=== PATIENT | female | born 1970 | race Two or more races ===

== ENCOUNTER 2019-05-26 10:15 | Emergency (ER) | payer OTHER ==
[~2019-05-26] VITALS: Ht 154.9 cm; Wt 99.8 kg
[2019-05-26 10:24] VITALS: BP 123/75
[2019-05-26] MEDS ORDERED: PROMETHAZINE HCL 25 MG/ML 1ML IM ONE (12:00)
[2019-05-26] MEDS ORDERED: MEPERIDINE HCL (50 MG/ML) 1 ML VIAL IM ONE (12:00)
== END 2019-05-26 12:37 | disposition home or self-care (01) ==
LOC: ER 10:15
DX: M54.9 Dorsalgia, unspecified (principal); M62.838 Other muscle spasm; I10 Essential (primary) hypertension
CPT/HCPCS: 96372; 99283; J2175; J2550

== ENCOUNTER → 2020-02-15 | Emergency (ER) | payer OTHER ==
[~2020-02-15] VITALS: Ht 154.9 cm; Wt 106.1 kg
[~2020-02-15] MED LIST: HYDROmorphone HCL 2 MG/ML VL IV ONE; MIDAZOLAM HCL 5 MG/ML-1ML VIAL IV ONE; MIDAZOLAM HCL 5 MG/ML-1ML VIAL ONE; ONDANSETRON HCL 4 MG/2 ML VIAL IV ONE; fentaNYL CITRATE 100 MCG/2 ML VL IV ONE
[2020-02-16 01:21] VITALS: BP 148/66
== END | disposition home or self-care (01) ==
LOC: EDUNIT# 20:07 → EDBD 20:17 → ER 20:17
DX: S92.191A Other fracture of right talus, initial encounter for closed fracture (principal); W01.0XXA Fall on same level from slipping, tripping and stumbling without subsequent striking against object, initial encounter; Y93.89 Activity, other specified; Y92.89 Other specified places as the place of occurrence of the external cause; Y99.8 Other external cause status
CPT/HCPCS: 27768; 73600; 73610; 96374; 96375; 99152; 99153; 99285; J1170; J2250; J2405; J3010; J7030

== ENCOUNTER → 2020-02-22 | Emergency (ER) | payer OTHER ==
[~2020-02-22] VITALS: Ht 154.9 cm; Wt 106.1 kg
[~2020-02-22] MED LIST changes: +LABETALOL HCL 5 MG/ML 4ML SYRINGE IV ONE; +METOCLOPRAMIDE HCL 5MG/ml INJ 2ml VIAL IV ONE; -MIDAZOLAM HCL 5 MG/ML-1ML VIAL IV ONE; -MIDAZOLAM HCL 5 MG/ML-1ML VIAL ONE; -ONDANSETRON HCL 4 MG/2 ML VIAL IV ONE; +PROMETHAZINE HCL 25 MG/ML 1ML IV ONE; -fentaNYL CITRATE 100 MCG/2 ML VL IV ONE
[2020-02-22 16:13] LABS: Basophils # (auto) 0.1 10 ^3/uL (0-0.2); Eosinophils # (auto) 0 10 ^3/uL (0-0.8); Mean Corpuscular Volume 82.7 fL (80.0-100.0); Neutrophils % (auto) 72.5 % (37.0-80.0)
[2020-02-22 16:15] LABS: Basophils % (auto) 0.6 % (0.0-2.0); Eosinophils % (auto) 0.4 % (0.0-7.0); Hematocrit 40.1 % (36.0-46.0); Hemoglobin 13.3 g/dL (12.2-16.2); Lymphocytes # (auto) 2.5 10 ^3/uL (0.4-5.4); Lymphocytes % (auto) 19.7 % (10.0-50.0); Mean Corpuscular Hemoglobin 27.5 pg (28.0-32.0); Mean Corpuscular Hgb Conc. 33.2 g/dL (32.0-36.0); Monocytes # (auto) 0.9 10 ^3/uL (0-1.3); Monocytes % (auto) 6.8 % (0.0-12.0); Neutrophils # (auto) 9.2 10 ^3/uL (1.6-8.6); Platelet Count (auto) 468 10^3/uL (140-450); Red Blood Cells 4.85 10^6/uL (4.0-5.20); Red Cell Distribution Width 15.1 % (11.8-14.3); Urine Bacteria NONE SEEN /hpf (None Seen); Urine Blood Negative /uL (Negative); Urine Specific Gravity 1.032 (1.001-1.035); Urine WBC 1 /hpf (0 - 5); White Blood Cell 12.7 10^3/uL (4.4-10.8)
[2020-02-22 16:31] LABS: Calcium 8.7 mg/dL (8.5-10.1); Potassium 3.8 mmol/L (3.5-5.1)
[2020-02-22 16:35] LABS: BUN/Creatinine Ratio 13.2; Bilirubin, Total 0.6 mg/dL (0.2-1.0); Total Protein 8.4 g/dL (6.4-8.2)
[2020-02-22 19:40] VITALS: BP 134/46
== END | disposition home or self-care (01) ==
LOC: ER 14:58
DX: S82.891A Other fracture of right lower leg, initial encounter for closed fracture (principal); I10 Essential (primary) hypertension; X58.XXXA Exposure to other specified factors, initial encounter; Y93.89 Activity, other specified; Y92.89 Other specified places as the place of occurrence of the external cause; Y99.8 Other external cause status
CPT/HCPCS: 29515; 36415; 73610; 80053; 81001; 85025; 93971; 96374; 96375; 96376; 99285; J1170; J2550; J2765

== ENCOUNTER 2021-05-18 15:19 | Emergency (ER) | payer OTHER ==
[~2021-05-18] VITALS: Ht 154.9 cm; Wt 106.1 kg
[2021-05-18 17:08] LABS: Urine Bacteria NONE SEEN /hpf (None Seen); Urine Blood Negative /uL (Negative); Urine Mucus FEW (None Seen); Urine Specific Gravity 1.024 (1.001-1.035); Urine WBC 1 /hpf (0 - 5)
[2021-05-18] MEDS ORDERED: methylPREDNISolone SOD SUCC 125 MG/2 ML VL IM ONE (19:15)
[2021-05-18 21:43] VITALS: BP 165/98
== END 2021-05-19 00:01 | disposition home or self-care (01) ==
LOC: ER 15:19
DX: T78.40XA Allergy, unspecified, initial encounter (principal); I10 Essential (primary) hypertension; R07.89 Other chest pain; E66.9 Obesity, unspecified; E78.5 Hyperlipidemia, unspecified; Z68.41 Body mass index [BMI] 40.0-44.9, adult; Z88.8 Allergy status to other drugs, medicaments and biological substances; Z20.822 Contact with and (suspected) exposure to COVID-19; X58.XXXA Exposure to other specified factors, initial encounter
CPT/HCPCS: 36415; 71045; 81001; 87426; 96372; 99284; J2930

== ENCOUNTER 2022-11-02 09:02 | Emergency (ER) | payer OTHER ==
[~2022-11-02] VITALS: Ht 157.5 cm; Wt 101.5 kg
[~2022-11-02 09:02] MED LIST changes: +GABA-339 PO; +HYDR-4798 PO; +HYDR25TA4 PO; -HYDROmorphone HCL 2 MG/ML VL IV ONE; -LABETALOL HCL 5 MG/ML 4ML SYRINGE IV ONE; +LOSA-69 PO; +MET25T PO; -METOCLOPRAMIDE HCL 5MG/ml INJ 2ml VIAL IV ONE; -PROMETHAZINE HCL 25 MG/ML 1ML IV ONE; +SPIR25TA8 PO; +TIZA2CAP PO
[2022-11-02] MEDS ORDERED: IOHEXOL 300 MG/ML 100ML BOTTLE IJ ONE (12:09)
[2022-11-02] MEDS ORDERED: IPRATROPIUM BROM 0.5 MG/2.5ML INH SOL NEB ONE (12:15)
[2022-11-02] MEDS ORDERED: DexAMETHasone SOD PHOS 10MG/1ML VIAL INJ IV ONE (12:15)
[2022-11-02] MEDS ORDERED: diphenhdrAMINE HCL 50 MG/1 ML VL IV ONE (12:15)
[2022-11-02] MEDS ORDERED: ALBUTEROL SULF 2.5 MG/0.5ML(0.5%) NEB SOLN NEB ONE (12:15)
[2022-11-02] MEDS ORDERED: FAMOTIDINE (10MG/ML) 2ML VL IV ONE (12:15)
[2022-11-02 12:42] LABS: Basophils % (auto) 0.5 % (0.0-2.0); Eosinophils # (auto) 0.2 10 ^3/uL (0-0.8); Hematocrit 43.3 % (36.0-46.0); Lymphocytes # (auto) 2.7 10 ^3/uL (0.4-5.4); Monocytes # (auto) 0.8 10 ^3/uL (0-1.3); Neutrophils # (auto) 6.9 10 ^3/uL (1.6-8.6); White Blood Cell 10.7 10^3/uL (4.4-10.8)
[2022-11-02 12:43] LABS: Basophils # (auto) 0 10 ^3/uL (0-0.2); Eosinophils % (auto) 2.2 % (0.0-7.0); Hemoglobin 14.5 g/dL (12.2-16.2); Lymphocytes % (auto) 25.4 % (10.0-50.0); Mean Corpuscular Hemoglobin 28.2 pg (28.0-32.0); Mean Corpuscular Hgb Conc. 33.6 g/dL (32.0-36.0); Mean Corpuscular Volume 84.1 fL (80.0-100.0); Monocytes % (auto) 7.6 % (0.0-12.0); Neutrophils % (auto) 64.3 % (37.0-80.0); Nucleated Red Blood Cells % 0.1 %; Red Blood Cells 5.14 10^6/uL (4.0-5.20); Red Cell Distribution Width 14.3 % (11.8-14.3)
[2022-11-02 13:04] LABS: Potassium 3.7 mmol/L (3.5-5.1)
[2022-11-02 13:11] LABS: Albumin 4.2 g/dL (3.4-5.0); BUN/Creatinine Ratio 20.9 (10.0-20.0); Bilirubin, Total 0.5 mg/dL (0.2-1.0)
[2022-11-02 16:37] VITALS: BP 136/80
== END 2022-11-02 16:37 | disposition home or self-care (01) ==
LOC: ER 09:02
DX: R07.89 Other chest pain (principal); T50.905A Adverse effect of unspecified drugs, medicaments and biological substances, initial encounter; E78.5 Hyperlipidemia, unspecified; I10 Essential (primary) hypertension; Z88.8 Allergy status to other drugs, medicaments and biological substances; Z79.899 Other long term (current) drug therapy; Z98.890 Other specified postprocedural states; X58.XXXA Exposure to other specified factors, initial encounter; Y92.89 Other specified places as the place of occurrence of the external cause
CPT/HCPCS: 36415; 70491; 71046; 80053; 83880; 84484; 85025; 85379; 93005; 94640; 96374; 96375; 99285; J1100; J1200; J3490; J7644; Q9967

== ENCOUNTER 2023-11-08 15:50 | Emergency (ER) | payer OTHER ==
[~2023-11-08] VITALS: Ht 152.4 cm; Wt 101.9 kg
[~2023-11-08 15:50] MED LIST changes: +LOSA-534 PO; -LOSA-69 PO
[2023-11-08] MEDS: KETOROLAC TROMETH 60MG/2ML VIAL IM ONE (17:08)
[2023-11-08] MEDS: DexAMETHasone SOD PHOS 10MG/1ML VIAL INJ IM ONE (17:08)
[2023-11-08] MEDS: cefTRIAXone SOD 1,000 MG VL IM ONE (17:09)
[2023-11-08 17:17] VITALS: BP 134/83; PULSE 97; RESP 18; TEMP 97.1; O2SAT 98
[2023-11-08] MEDS ORDERED: ACET500T58 PO (17:20)
[2023-11-08] MEDS ORDERED: LIDO2SOL26 MT (17:20)
[2023-11-08] MEDS ORDERED: PENI500T2 PO (17:20)
[2023-11-08] MEDS ORDERED: AMOX500T3 PO (17:29)
== END 2023-11-08 17:25 | disposition home or self-care (01) ==
LOC: ER 15:50
DX: J03.90 Acute tonsillitis, unspecified (principal); M79.10 Myalgia, unspecified site; R11.2 Nausea with vomiting, unspecified; R19.7 Diarrhea, unspecified; I10 Essential (primary) hypertension; E78.5 Hyperlipidemia, unspecified; Z79.2 Long term (current) use of antibiotics; Z79.899 Other long term (current) drug therapy; Z88.8 Allergy status to other drugs, medicaments and biological substances
CPT/HCPCS: 96372; 99284; J0696; J1100; J1885

== ENCOUNTER 2023-12-07 08:05 | Inpatient (IN) | payer OTHER ==
[~2023-12-07] VITALS: Ht 154.9 cm; Wt 100.0 kg
[~2023-12-07 08:05] MED LIST changes: +ACET500T58 PO; +AMOX500T3 PO; +LIDO2SOL26 MT
[2023-12-07 08:45] LABS: Urine Bacteria None Seen /hpf (None Seen)
[2023-12-07 09:15] LABS: Urine Blood Negative /uL (Negative); Urine Clarity Turbid (Clear); Urine Color Yellow (Yellow); Urine Hyaline Cast FEW /lpf (0 - 2); Urine Mucus FEW (None Seen); Urine Protein, UAD TRACE (Negative); Urine Specific Gravity 1.032 (1.001-1.035); Urine Urobilinogen 2 mg/dL (Negative); Urine WBC 4 /hpf (0 - 5); Urine pH 5.5 (5.0-9.0)
[2023-12-07 09:27] LABS: Eosinophils # (auto) 0.2 10 ^3/uL (0-0.8); Hemoglobin 14.5 g/dL (12.2-16.2); Nucleated Red Blood Cells % 0.1 %
[2023-12-07 09:29] LABS: Basophils # (auto) 0.1 10 ^3/uL (0-0.2); Basophils % (auto) 0.6 % (0.0-2.0); Eosinophils % (auto) 1.9 % (0.0-7.0); Lymphocytes % (auto) 19.1 % (10.0-50.0); Mean Corpuscular Hemoglobin 27.1 pg (28.0-32.0); Mean Corpuscular Hgb Conc. 32.8 g/dL (32.0-36.0); Mean Corpuscular Volume 82.6 fL (80.0-100.0); Monocytes # (auto) 0.7 10 ^3/uL (0-1.3); Monocytes % (auto) 6.5 % (0.0-12.0); Neutrophils # (auto) 7.6 10 ^3/uL (1.6-8.6); Neutrophils % (auto) 71.9 % (37.0-80.0); Red Blood Cells 5.33 10^6/uL (4.0-5.20); Red Cell Distribution Width 14.1 % (11.8-14.3); White Blood Cell 10.6 10^3/uL (4.4-10.8)
[2023-12-07] MEDS: ONDANSETRON ODT 4 MG TAB PO ONE (09:32)
[2023-12-07 09:43] LABS: Alanine Aminotransferase 26 U/L (7-40); Albumin 4.9 g/dL (3.2-4.8); Alkaline Phosphatase 90 U/L (46-116); Anion Gap 7 (5-15); Aspartate Aminotransferase 15 U/L (13-40); BUN/Creatinine Ratio 13.7 (10.0-20.0); Blood Urea Nitrogen 13 mg/dL (9-23); Calcium 10.3 mg/dL (8.5-10.1); Carbon Dioxide 30 mmol/L (20-30); Chloride 102 mmol/L (98-107); Glucose 176 mg/dL (74-106); Potassium 3.3 mmol/L (3.5-5.1); Sodium 139 mmol/L (136-145)
[2023-12-07 09:44] LABS: Bilirubin, Total 0.4 mg/dL (0.2-1.0); Total Protein 7.9 g/dL (5.7-8.2)
[2023-12-07 10:45] VITALS: PULSE 13; RESP 13; O2SAT 95
[2023-12-07 11:11] LABS: Lipase 51 U/L (12-53)
[2023-12-07] MEDS ORDERED: DOCUSATE SOD 100 MG CAP PO PRN (11:45)
[2023-12-07] MEDS ORDERED: ACETAMINOPHEN 325 MG TAB PO PRN (11:45)
[2023-12-07] MEDS ORDERED: ONDANSETRON HCL 4 MG/2 ML VIAL IV PRN (11:45)
[2023-12-07] MEDS ORDERED: CLON0.1T PO (11:55)
[2023-12-07] MEDS ORDERED: CARV3.1240 PO (11:55)
[2023-12-07] MEDS ORDERED: HYDR25TA87 PO (11:55)
[2023-12-07] MEDS ORDERED: TIZA-142 PO (11:55)
[2023-12-07] MEDS ORDERED: GABA800T97 PO (11:55)
[2023-12-07] MEDS ORDERED: TIZANIDINE HYDROCHLORIDE 4 MG PO PRN (12:00)
[2023-12-07] MEDS: POTASSIUM CHL 20MEQ/100ML 100 ML IV SCH (12:06)
[2023-12-07] MEDS: SODIUM CHLORIDE 0.9% 1,000 ML IV ONE (12:17)
[2023-12-07] MEDS: GABAPENTIN 400 MG CAP PO SCH (14:09)
[2023-12-07] MEDS: SODIUM CHLORIDE 0.9% 1,000 ML IV SCH (16:17)
[2023-12-07 18:09] VITALS: RESP 18
[2023-12-07] MEDS ORDERED: FENO145T27 PO (18:31)
[2023-12-07 20:00] VITALS: PULSE 70; RESP 20; O2SAT 96
[2023-12-07 21:00] VITALS: BP 130/76; PULSE 70; RESP 20; TEMP 98.3; O2SAT 96
[2023-12-07] MEDS: CARVEDILOL 3.125 MG TAB PO SCH (21:58)
[2023-12-07] MEDS: HYDROcodone-ACET 5/325MG TAB PO PRN (22:05)
[2023-12-08] VITALS (9 sets, daily range): BP systolic 93–159; BP diastolic 41–82; PULSE 61–80; RESP 16–20; TEMP 97.7–98.5; O2SAT 91–98
[2023-12-08 06:53] LABS: Basophils # (auto) 0 10 ^3/uL (0-0.2); Basophils % (auto) 0.4 % (0.0-2.0); Eosinophils # (auto) 0.3 10 ^3/uL (0-0.8); Eosinophils % (auto) 3.6 % (0.0-7.0); Hematocrit 38.6 % (36.0-46.0); Hemoglobin 12.9 g/dL (12.2-16.2); Lymphocytes # (auto) 2.6 10 ^3/uL (0.4-5.4); Lymphocytes % (auto) 36.2 % (10.0-50.0); Mean Corpuscular Hemoglobin 27.4 pg (28.0-32.0); Mean Corpuscular Hgb Conc. 33.3 g/dL (32.0-36.0); Mean Corpuscular Volume 82.2 fL (80.0-100.0); Monocytes # (auto) 0.6 10 ^3/uL (0-1.3); Neutrophils # (auto) 3.6 10 ^3/uL (1.6-8.6); Neutrophils % (auto) 50.8 % (37.0-80.0); Red Cell Distribution Width 13.9 % (11.8-14.3); White Blood Cell 7.1 10^3/uL (4.4-10.8)
[2023-12-08 09:27] LABS: Alanine Aminotransferase 21 U/L (7-40); Albumin 4.1 g/dL (3.2-4.8); Alkaline Phosphatase 67 U/L (46-116); Anion Gap 5 (5-15); Aspartate Aminotransferase 17 U/L (13-40); BUN/Creatinine Ratio 12.2 (10.0-20.0); Bilirubin, Total 0.4 mg/dL (0.2-1.0); Blood Urea Nitrogen 10 mg/dL (9-23); Calcium 9.3 mg/dL (8.5-10.1); Carbon Dioxide 29 mmol/L (20-30); Chloride 106 mmol/L (98-107); Glucose 164 mg/dL (74-106); Magnesium 1.6 mg/dL (1.6-2.6); Sodium 140 mmol/L (136-145); Total Protein 6.7 g/dL (5.7-8.2)
[2023-12-08 09:50] LABS: Triglycerides 188 mg/dL (< 150)
[2023-12-08 09:51] LABS: LDL Cholesterol 110 mg/dL (< 100)
[2023-12-08 09:52] LABS: Cholesterol 150 mg/dL (< 200)
[2023-12-08 10:22] LABS: HDL Cholesterol 26 mg/dL (40-59)
[2023-12-08] MEDS: MAGNESIUM SULFATE 1GM/100ML 100 ML IV SCH (11:27)
[2023-12-08 13:57] LABS: Amphetamine Screen, Urine Neg (NEGATIVE); Barbiturate Scree,Urine Neg (NEGATIVE); Benzodiazephine Screen, Urine Neg (NEGATIVE); Cannabinoid Screen, Urine Neg (NEGATIVE); Cocaine Screen, Urine Neg (NEGATIVE); Opiate Scree,Urine Neg (NEGATIVE); Phencyclidine Screen, Urine Neg (NEGATIVE)
[2023-12-08] MEDS: hydrALAZINE HCL 25 MG TAB PO PRN (14:13)
[2023-12-09 01:00] VITALS: BP 101/64; PULSE 73; RESP 17; TEMP 98.3; O2SAT 98
[2023-12-09 05:00] VITALS: BP 104/41; PULSE 71; RESP 19; TEMP 98; O2SAT 97
[2023-12-09 07:00] LABS: Basophils # (auto) 0 10 ^3/uL (0-0.2); Basophils % (auto) 0.6 % (0.0-2.0); Eosinophils # (auto) 0.2 10 ^3/uL (0-0.8); Eosinophils % (auto) 3.5 % (0.0-7.0); Hemoglobin 12.9 g/dL (12.2-16.2); Lymphocytes # (auto) 1.9 10 ^3/uL (0.4-5.4); Lymphocytes % (auto) 30.4 % (10.0-50.0); Mean Corpuscular Hgb Conc. 33.2 g/dL (32.0-36.0); Mean Corpuscular Volume 84.5 fL (80.0-100.0); Monocytes # (auto) 0.5 10 ^3/uL (0-1.3); Monocytes % (auto) 8.6 % (0.0-12.0); Neutrophils # (auto) 3.6 10 ^3/uL (1.6-8.6); Neutrophils % (auto) 56.9 % (37.0-80.0); Nucleated Red Blood Cells % 0.1 %; Red Blood Cells 4.62 10^6/uL (4.0-5.20); Red Cell Distribution Width 13.6 % (11.8-14.3); White Blood Cell 6.4 10^3/uL (4.4-10.8)
[2023-12-09 07:15] LABS: Alanine Aminotransferase 21 U/L (7-40); Albumin 3.8 g/dL (3.2-4.8); Alkaline Phosphatase 76 U/L (46-116); Anion Gap 6 (5-15); Aspartate Aminotransferase 13 U/L (13-40); BUN/Creatinine Ratio 9.5 (10.0-20.0); Bilirubin, Total 0.2 mg/dL (0.2-1.0); Blood Urea Nitrogen 7 mg/dL (9-23); Calcium 9.1 mg/dL (8.5-10.1); Carbon Dioxide 26 mmol/L (20-30); Chloride 111 mmol/L (98-107); Glucose 128 mg/dL (74-106); Magnesium 2.1 mg/dL (1.6-2.6); Potassium 3.8 mmol/L (3.5-5.1); Sodium 143 mmol/L (136-145); Total Protein 6.3 g/dL (5.7-8.2)
[2023-12-09 07:30] VITALS: PULSE 71; RESP 18; O2SAT 97
[2023-12-09 09:00] VITALS: BP 131/78; PULSE 62; RESP 20; TEMP 98.1; O2SAT 98
[2023-12-09 11:48] VITALS: BP 131/78; PULSE 63; RESP 16; TEMP 36.7; O2SAT 97
[2023-12-09 13:00] VITALS: BP 150/70; PULSE 66; RESP 20; TEMP 98; O2SAT 99
== END 2023-12-09 13:10 | disposition home or self-care (01) | DRG 392 ==
LOC: ER 08:05 → EEVIPCON 11:46 → OVERFLOW 11:46 → CENTRAL 17:39
PROVIDERS: ADMIT Internal Medicine Pulmonary Disease; ATTEND Internal Medicine Pulmonary Disease
PROC: 5A09357 Assistance with Respiratory Ventilation, Less than 24 Consecutive Hours, Continuous Positive Airway Pressure (ICD-10-PCS; principal; 2023-12-07)
DX: A08.4 Viral intestinal infection, unspecified (principal); R73.9 Hyperglycemia, unspecified; E86.0 Dehydration; E78.5 Hyperlipidemia, unspecified; E87.6 Hypokalemia; I10 Essential (primary) hypertension; G89.29 Other chronic pain; Z90.710 Acquired absence of both cervix and uterus; Z79.899 Other long term (current) drug therapy
CPT/HCPCS: 36415; 74176; 80053; 80061; 80307; 81001; 82270; 83036; 83690; 83735; 84443; 85025; 85048; 86141; 87045; 87177; 87427; 87493; 93005; 96361; 96365; G0378; J3480; Q0162

== ENCOUNTER 2025-05-08 07:10 | Emergency (ER) | payer OTHER ==
[~2025-05-08] VITALS: Ht 154.9 cm; Wt 102.5 kg
[~2025-05-08 07:10] MED LIST changes: -AMOX500T3 PO; +CARV3.1240 PO; +CLON0.1T PO; +FENO145T27 PO; -GABA-339 PO; +GABA800T97 PO; +HYDR25TA87 PO; -MET25T PO; +TIZA-142 PO; -TIZA2CAP PO
--- NOTE | 2025-05-08 07:46 | ED.PDOC ---
Eye-HPI HPI Comments A 54 YEAR OLD FEMALE PRESENTS TO THE ED WITH COMPLAINT OF SORE THROAT. PATIENT STATES SHE HAS BEEN EXPERIENCING A SORE THROAT THAT IS WORSE WITH SWALLOWING FOR THE PAST 1 WEEK. PATIENT DENIES FEVER, CHILLS, SHORTNESS OF BREATH, CHEST PAIN, ABDOMINAL PAIN, NAUSEA, VOMITING, HEADACHE, OR OTHER COMPLAINTS. NO OTHER SYMPTOMS OR MODIFYING FACTORS AT THIS TIME. PATIENT IS ALERT, ORIENTED X 4, AND HAS STEADY GAIT. Chief Complaint: Sore Throat Time Seen by MD: 07:21 Primary Care Provider: MANUAL Reviewed Notes: Nurses Notes, Medications, Allergies Allergies: Coded Allergies: Amlodipine (Verified Allergy, Severe, 09/25/22) Benazepril (Verified Allergy, Severe, ANGIOEDEMA, 09/25/22) Lisinopril (Verified Allergy, Severe, ANGIOEDEMA, 09/25/22) NSAIDs (Verified Allergy, Severe, HIVES, 05/26/19) Naproxen (Verified Allergy, Severe, RASH, 09/25/22) Atenolol (Verified Allergy, Unknown, 05/18/21) Ibuprofen (Unverified Allergy, Unknown, 09/25/22) Hives Home Meds Active Scripts Azithromycin (Azithromycin) 500 Mg Tab, 1 TAB PO DAILY, #5 TAB Prov:DARI GERARDO 05/08/25 Acetaminophen (Acetaminophen) 500 Mg Tab, 1000 MG PO TIDPRN PRN for 10 Days, #60 TAB 0 Refills Prov:EDA HYATT NP 11/08/23 Lidocaine HCl (Mouth-Throat) (Lidocaine HCl Viscous) 2 % Marci, 15 ML MT TID for 10 Days, #1 BOTTLE 0 Refills Prov:EDA HYATT NP 11/08/23 Reported Medications Fenofibrate (FENOFIBRATE) 145 Mg Tab, 160 MG PO DAILY, TAB 12/07/23 Clonidine Hydrochloride (Clonidine Hcl) 0.1 Mg Tab, 1 TAB PO DAILY 12/07/23 Gabapentin (Gabapentin) 800 Mg Tab, 1 TAB PO TID 12/07/23 Carvedilol (Carvedilol) 3.125 Mg Tab, 1 TAB PO BID 12/07/23 Hydralazine HCl (Hydralazine HCl) 25 Mg Tab, 1 TAB PO TID PRN 12/07/23 Tizanidine Hydrochloride (Tizanidine Hcl) 4 Mg Tab, 1 TAB PO TID PRN 12/07/23 Hydrocodone-Acetaminophen (Hydrocodone Bitartrate/AC 10-325 mg) 1 Tab Tab, 1 TAB PO Q6HP, TAB 08/08/22 Hydrochlorothiazide (Hydrochlorothiazide) 25 Mg Tab, 1 TAB PO DAILY, #30 TAB 5 Refills 08/08/22 Losartan Potassium (Losartan Potassium) 50 Mg Tab, 1 TAB PO BID, #30 TAB 5 Refills 08/08/22 Spironolactone (Spironolactone) 25 Mg Tab, 1 TAB PO DAILY, #90 TAB 1 Refill 08/08/22 Information Source: Patient Mode of Arrival: Ambulatory Timing: Days Duration: Since onset, Days Prehospital treatment: None Quality: Pain, Red Lids: Normal Conjunctiva: Normal Cornea: Normal Pupils: Normal EOM: Normal Fundus: Normal Slit lamp exam: Normal Anterior chamber: Normal Mouth Location: Pharynx Mouth: Normal ENT Ear Exam: Normal, Normal, Normal Nose: Normal Sinuses: Normal Oropharynx: Tonsillar hypertrophy, Red Onset: Spontaneous Throat Exposed to: None History of: None Last Tetanus: Unknown Modifying factors: Nothing Associated signs and symptoms: Sore Throat Past Medical History PAST MEDICAL HISTORY: High Lipids, HTN Past Medical History (Other): CHRONIC LOW BACK PAIN Surgical History: Hysterectomy SPINNER IRON History: No Pertinent SPINNER IRON History Family History Family History: Reviewed,noncontributory to illness Social History Smoker: Non-Smoker Alcohol: Denies ETOH Use Drugs: Denies Drug Use Lives In: Home Constitutional: denies: chills, diaphoresis, fatigue, fever, malaise, sweats, weakness, others EENTM: reports: throat pain, throat swelling, voice changes; denies: blurred vision, double vision, ear bleeding, ear discharge, ear drainage, ear pain, ear ringing, eye pain, eye redness, hearing loss, mouth pain, mouth swelling, nasal discharge, nose bleeding, nose congestion, nose pain, photophobia, tearing, others Respiratory: denies: cough, hemoptysis, orthopnea, SOB at rest, shortness of breath, SOB with excertion, stridor, wheezing, others Cardiovascular: denies: chest pain, dizzy spells, diaphoresis, Dyspnea on exertion, edema, irregular heart beat, left arm pain, lightheadedness, palpitations, PND, syncope, others Gastrointestinal: denies: abdomen distended, abdominal pain, blood streaked bowels, constipated, diarrhea, dysphagia, difficulty swallowing, hematemesis, melena, nausea, poor appetite, poor fluid intake, rectal bleeding, rectal pain, vomiting, others Genitourinary: denies: abnormal vagina bleeding, burning, dyspareunia, dysuria, flank pain, frequency, hematuria, incontinence, pain, , vagina discharge, urgency, others Neurological: denies: dizziness, fainting, headache, left sided numbness, left sided weakness, numbness, paresthesia, pre-existing deficit, right sided numbness, right sided weakness, seizure, speech problems, tingling, tremors, weakness, others Musculoskeletal: denies: back pain, gout, joint pain, joint swelling, muscle pain, muscle stiffness, neck pain, others Integumetry: denies: bruises, change in color, change in hair/nails, dryness, laceration, lesions, lumps, rash, wounds, others Allergic/Immunocompromised: denies: Difficulty Healing, Frequent Infections, Hives, Itching, others Hematologic/Lymphatic: denies: anemia, blood clots, easy bleeding, easy bruising, swollen glands, others Endocrine: denies: excessive hunger, excessive sweating, excessive thirst, excessive urination, flushing, intolerance to cold, intolerance to heat, unexp lained weight gain, unexplained weight loss, others Psychiatric: denies: anxiety, bipolar disorder, depression, hopeless, panic disorder, schizophrenia, sleepless, suicidal, others All Other Systems: Reviewed and Negative Physical Exam General Appearance: No Apparent Distress, Obese HEENT: PERRL/EOMI, Pharyngeal Erythema (ERYTHEMA AND SWELLINHG ON TONSILIS, NO EXUDATES, ERYTHEMA AND MILD SWELLING ON UVULA. ), TMs Normal Neck: Full Range of Motion, Non-Tender, Normal, Normal Inspection Respiratory: Chest Non-Tender, Lungs Clear, No Accessory Muscle Use, No Respiratory Distress, Normal Breath Sounds Cardiovascular: No Edema, No JVD, No Murmur, No Gallop, Normal Peripheral Pulses, Regular Rate/Rhythm Breast Exam: Deferred Gastrointestinal: No Organomegaly, Non Tender, No Pulsatile Mass, Normal Bowel Sounds, Soft Genitalia: Deferred Pelvic: Deferred Rectal: Deferred Extremities: No calf tenderness, Normal capillary refill, Normal inspection, Normal range of motion, Non-tender, No pedal edema Musculoskeletal : Apperance: Normal Neurologic: Alert, powder room attendant II-XII nml as Tested, No Motor Deficits, Normal Affect, Normal Mood, No Sensory Deficits Cerebellar Function: Normal Reflexes: Normal Skin: Dry, Normal Color, Warm Peripheral Pulses: 2+ carotid (R), 2+ carotid (L) Lymphatic: No Adenopathy Was a procedure done? Was a procedure done?: No EENT DIFF Eye: N/A Ear: Otitis Media, Pharyngitis, Sinusitis Nose: N/A Mouth: N/A Sore Throat: Pharyngitis, Streptococcal, Viral Pharyngitis, URI X-Ray, Labs, Meds, VS Vital Signs Date Time Temp Pulse Resp B/P (MAP) Pulse Ox O2 Delivery O2 Flow Rate FiO2 05/08/25 07:12 98.4 77 18 125/71 96 98.4 Current Medications Medications (Trade) Dose Ordered Sig/Apolinar Route Start Time Stop Time Status Last Admin Ceftriaxone Sodium (Rocephin) 1,000 mg ONCE ONCE IM 05/08/25 07:45 05/08/25 07:46 DC 05/08/25 07:54 Methylprednisolone Sodium Succinate (Solu Medrol) 125 mg ONCE ONCE IM 05/08/25 07:45 05/08/25 07:46 DC 05/08/25 07:54 X-Ray, Labs, Meds, VS Comment EXTERNAL MEDICAL RECORDS REVIEWED: [NONE] INDEPENDENT HISTORIANS: [NONE] SOCIAL DETERMINANTS OF HEALTH: [NONE] LABS ORDERED: NONE REVIEWED AND INTERPRETED RESULTS: NONE IMAGING ORDERED: NONE TREATMENTS ORDERED: ROCEPHIN 1 G IM, SOLU-MEDROL 125 MG IM PROCEDURES PERFORMED: NONE CRITICAL CARE TIME: NONE I HAVE DISCUSSED THE PATIENT WITH THE ATTENDING PHYSICIAN DR. LOMELI AND HE AGREES WITH THE PATIENT'S PLAN OF CARE AND DISPOSITION. BASED ON HISTORY OF PRESENT ILLNESS, AND PHYSICAL EXAM, PATIENT WILL BE DISCHARGED HOME. DISCUSSED PLAN FOR DISCHARGE HOME WITH RX [AZITHROMYCIN AND 2% VISCOUS LIDOCAINE]. MEDICATION WARNINGS GIVEN. SHARED DECISION MAKING: PATIENT INSTRUCTED TO FOLLOW UP WITH PRIMARY CARE PROVIDER IN 1-2 DAYS FOR RE-EVALUATION OF SYMPTOMS. PATIENT VERBALIZES UNDERSTANDING TO RETURN TO ED FOR NEW OR WORSENING SYMPTOMS OR IF FOLLOW UP WITH PCP CANNOT BE OBTAINED. PATIENT FEELS COMFORTABLE GOING HOME AT THIS TIME. ALL QUESTIONS ADDRESSED AT TIME OF DISCHARGE. Time of 1ST Reevaluation: 08:10 Reevaluation 1ST: Improved Patient Education/Counseling: Diagnosis, Treatment, Need For Follow Up Family Education/Counseling: Diagnosis, Treatment, Need For Follow Up Medical Screening: No EMC Exist At This Time SEPSIS Sepsis Screen Date sepsis recognized/suspect: May 08, 2025 Time Sepsis recognized/suspect: 0718 Recent Procedure: No On Antibiotic Therapy: No Respiratory Rate >20: No Heart Rate >90: No Temp<36 C (96.8 F) or >38.3 C: No SBP <90 or MAP <65 mmHG: No New Acute Mental Status Change: No Is the patient on CPAP, BIPAP,: No Vital Signs Date Time Temp Pulse Resp B/P (MAP) Pulse Ox O2 Delivery O2 Flow Rate FiO2 05/08/25 07:12 98.4 77 18 125/71 96 98.4 Medications Medications Dose Ordered Sig/Apolinar Route Start Time Stop Time Status Last Admin Dose Admin Ceftriaxone Sodium 1,000 mg ONCE ONCE IM 05/08/25 07:45 05/08/25 07:46 DC 05/08/25 07:54 Methylprednisolone Sodium Succinate 125 mg ONCE ONCE IM 05/08/25 07:45 05/08/25 07:46 DC 05/08/25 07:54 Departure 1 Departure Time of Disposition: 08:10 Impression: Primary Impression: Acute tonsillitis Qualified Codes: J03.90 - Acute tonsillitis, unspecified Additional Impression: Uvulitis Disposition: 01 HOME / SELF CARE / HOMELESS Condition: Stable Additional Instructions: FOLLOW-UP WITH PCP IN 1 TO 2 DAYS. TAKE MEDICATIONS PRESCRIBED. RETURN TO ED FOR ANY NEW OR WORSENING SYMPTOMS. e-Prescriptions Azithromycin (Azithromycin) 500 Mg Tab 1 TAB PO DAILY, #5 TAB Prov: DARI GERARDO 05/08/25 Discharged With: Self Critical Care Note Critical Care Time?: No Stability Stability form required: No I personally scribed for DARI GERARDO ([email or web address]) on 05/08/25 at 07:46. Electronically submitted by Prateek Yung ([email or web address]). DARI GERARDO May 08, 2025 07:46
[2025-05-08] MEDS: cefTRIAXone SOD 1,000 MG VL IM ONE (07:54)
[2025-05-08] MEDS: methylPREDNISolone SOD SUCC 125 MG/2 ML VL IM ONE (07:54)
[2025-05-08 07:57] VITALS: BP 125/71; PULSE 77; RESP 18; TEMP 98.4; O2SAT 96
[2025-05-08] MEDS ORDERED: AZIT500T66 PO (07:58)
== END 2025-05-08 07:57 | disposition home or self-care (01) ==
LOC: ER 07:10
DX: J03.90 Acute tonsillitis, unspecified (principal); K12.2 Cellulitis and abscess of mouth; I10 Essential (primary) hypertension; Z79.899 Other long term (current) drug therapy; Z88.6 Allergy status to analgesic agent; Z88.8 Allergy status to other drugs, medicaments and biological substances; Z90.710 Acquired absence of both cervix and uterus
CPT/HCPCS: 96372; 99284; J0696; J2919